=== PATIENT | female | born 1940 | race Caucasian/White ===

== ENCOUNTER → 2023-09-17 12:53 | Outpatient (REF) | payer MEDICARE, OTHER, SELFPAY | LOC: RAD 12:53 | PROVIDERS: ATTENDING PHYSICIAN Nurse Practitioner | DX: J06.9 Acute upper respiratory infection, unspecified (principal); R05.9 Cough, unspecified | CPT/HCPCS: 71046 ==

== ENCOUNTER → 2024-03-19 13:46 | Outpatient (REF) | payer MEDICARE, OTHER, SELFPAY | LOC: RAD 13:46 | PROVIDERS: ATTENDING PHYSICIAN Physician Assistant | DX: J40 Bronchitis, not specified as acute or chronic (principal) | CPT/HCPCS: 71046 ==

== ENCOUNTER 2024-03-20 23:29 | Inpatient (IN) | payer MEDICARE, OTHER, SELFPAY ==
[2024-03-20 21:55] VITALS: BP 212/82
[2024-03-20 22:00] VITALS: BMI 26.1
[2024-03-20 22:02] VITALS: BP 115/94
--- NOTE | 2024-03-20 22:19 | ED.GENMED ---
History of Present Illness
<GREGG Flores - Last Filed: 03/21/24 00:10>
General
Chief Complaint: Heart Rate Problem
Source: patient and family
Exam Limitations: none
Time Seen by Provider: 03/20/24 22:00
Nursing documentation reviewed up to this point in time: agreed with
History of Present Illness
History of Present Illness:
Patient is an 83yo F w/ no significant PMH who presents to the ED for a complaint of low HR. Her daughter checked her pulse which was between 40-43 bpm and consulted PCP who instructed to come to ER. She reports low energy, palpitations, and leg
weakness x3wks. These sxs have been progressively worsening. She admits to SOB but denies chest pain. Reports cough developed last weekend and she saw PCP Sunday. PCP did CXR which showed bronchitis & small pleural effusion. Was given Medrol dose
pack Tessalon pearls. She denies any hx of cardio or pulm problems. 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
Review of Systems
<GREGG Flores - Last Filed: 03/21/24 00:10>
Review of Systems
Constitutional: Reports fatigue; Denies fever or chills
Respiratory: Reports cough and trouble breathing
Cardiac: Reports palpitations; Denies chest pain
ABD/GI: Denies abdominal pain, nausea, vomiting, diarrhea or constipated
: Denies dysuria
Musculoskeletal: Denies joint pain or muscle pain
Neurological: Reports weakness
Phy Exam
<GREGG Flores - Last Filed: 03/21/24 00:10>
General Physical Exam
General Presentation: no apparent distress
General age: appears stated age
General Skin: warm and dry
General Habitus: elderly
General Mental: alert
Cardiovascular Exam
Cardiovascular Exam: no gallop, no murmur and bradycardia
Pulmonary Exam
Pulmonary Exam: lungs clear, no respiratory distress, no rales, no crackles, no rhonchi and no wheezing
Neurological Exam
Neurological Exam: alert, oriented x3, no motor deficits, no sensory deficits and speech normal
Musculoskeletal Exam
Musculoskeletal Exam: edema
Course
<Dea Wong, STPA - Last Filed: 03/21/24 00:10>
Orders/Labs/Results
Orders:
Orders
03/20/24 21:49
EKG [Electrocardiogram (*1)] Urgent
Reason for Study: Bradycardia / Tachycardia
EKG- Treatment ONCE
03/20/24 22:02
Complete Blood Count/With Diff Urgent
Comprehensive Metabolic Panel Urgent
Troponin I Urgent
03/20/24 23:09
CR Chest Portable - 1 View Urgent
Comment:
Reason For Exam: bradycardia
Reason Study Needs to be Portable: Unable to Transport
03/20/24 23:13
Admit/Transfer Patient As Directed
Co-Sign Provider:
Level of Care: Inpatient admission
Assign to:: IVU
Physician / Group: hospitalist
Diagnosis: third deg heartblock
Reason for Hospitalization: symptomatic bradycardia
Expected length of stay greater than two midnights?: Yes
ELOS- Estimated Length of Stay in days: 2
I certify the patient meets the requirements for IP care: Yes
Albuterol [ProAIR HFA INHALER] 1 puff INH R Q4HPRN PRN
Benzonatate [Tessalon Perles] 100 mg PO TIDPRN PRN
PRN Pain Medication Management As Directed
May give lesser potent ordered pain med per pt: Yes
preference::
Protocol:: Medication orders for pain may be administered in a
manner that supports deferring to patient preference
when the pt is:
- Requesting an ordered lesser potent pain medication.
Least to most potent pain medications are defined
as: acetaminophen < NSAID < tramadol < opioids
(morphine, oxycodone, hydromorphone).
- Requesting a lesser dose of the same medication IF
ORDERED.
- Requesting a less intrusive route of administration
if both routes are prescribed by the provider (PO <
IV).
03/20/24 23:14
Code Status As Directed
Resuscitation Status: Full Code
03/20/24 23:45
Guaifenesin [Mucinex] 600 mg PO Q12H
03/21/24 08:00
Bupropion(12Hr)Sustain Release [WELLBUTRIN SR (12 hour sustained release)] 100 mg PO DAILY
Pantoprazole [Protonix] 40 mg PO DAILY
03/21/24 22:00
Famotidine [Pepcid] 20 mg PO HS
Abnormal Lab Results
03/20/24
22:02
WBC 11.6 H 10^3/uL
(4.8-10.8)
RBC 3.76 L 10^6/uL
(4.20-5.40)
Hgb 10.6 L g/dL
(12.0-16.0)
Hct 32.0 L %
(37.0-47.0)
RDW 14.7 H %
(11.5-14.5)
MPV 12.5 H fL
(7.4-10.4)
Absolute Neuts (auto) 9.1 H 10^3/uL
(1.4-6.5)
Absolute Monos (auto) 0.9 H 10^3/uL
(0.1-0.6)
Neutrophils % 78.2 H %
(42.2-75.2)
Lymphocytes % 13.8 L %
(20.5-51.1)
BUN 30 H mg/dl
(7-17)
Creatinine 1.1 H mg/dL
(0.6-1.0)
Glucose 123 H mg/dl
(70-99)
AST 51 H U/L
(14-36)
ALT 63 H U/L
(0-35)
Troponin I 0.040 H* ng/ml
03/20/24 22:02
03/20/24 22:02
Vital Signs
Initial and Last Documented VS:
Initial Vital Signs
Temp Pulse Resp BP Pulse Ox
98.7 F 41 12 212/82 97
03/20/24 21:55 03/20/24 21:55 03/20/24 21:55 03/20/24 21:55 03/20/24 21:55
Last Documented Vital Signs
Temp Pulse Resp BP Pulse Ox
98.7 F 38 13 224/70 93
03/20/24 21:55 03/20/24 23:45 03/20/24 23:45 03/20/24 23:00 03/20/24 23:45
<Tone Dyer, DO - Last Filed: 03/20/24 22:39>
Orders/Labs/Results
Orders:
Orders
03/20/24 21:49
EKG [Electrocardiogram (*1)] Urgent
Reason for Study: Bradycardia / Tachycardia
EKG- Treatment ONCE
03/20/24 22:02
Complete Blood Count/With Diff Urgent
Comprehensive Metabolic Panel Urgent
Troponin I Urgent
03/20/24 23:09
CR Chest Portable - 1 View Urgent
Comment:
Reason For Exam: bradycardia
Reason Study Needs to be Portable: Unable to Transport
03/20/24 23:13
Admit/Transfer Patient As Directed
Co-Sign Provider:
Level of Care: Inpatient admission
Assign to:: IVU
Physician / Group: hospitalist
Diagnosis: third deg heartblock
Reason for Hospitalization: symptomatic bradycardia
Expected length of stay greater than two midnights?: Yes
ELOS- Estimated Length of Stay in days: 2
I certify the patient meets the requirements for IP care: Yes
Albuterol [ProAIR HFA INHALER] 1 puff INH R Q4HPRN PRN
Benzonatate [Tessalon Perles] 100 mg PO TIDPRN PRN
PRN Pain Medication Management As Directed
May give lesser potent ordered pain med per pt: Yes
preference::
Protocol:: Medication orders for pain may be administered in a
manner that supports deferring to patient preference
when the pt is:
- Requesting an ordered lesser potent pain medication.
Least to most potent pain medications are defined
as: acetaminophen < NSAID < tramadol < opioids
(morphine, oxycodone, hydromorphone).
- Requesting a lesser dose of the same medication IF
ORDERED.
- Requesting a less intrusive route of administration
if both routes are prescribed by the provider (PO <
IV).
03/20/24 23:14
Code Status As Directed
Resuscitation Status: Full Code
03/20/24 23:45
Guaifenesin [Mucinex] 600 mg PO Q12H
03/21/24 08:00
Bupropion(12Hr)Sustain Release [WELLBUTRIN SR (12 hour sustained release)] 100 mg PO DAILY
Pantoprazole [Protonix] 40 mg PO DAILY
03/21/24 22:00
Famotidine [Pepcid] 20 mg PO HS
Abnormal Lab Results
03/20/24
22:02
WBC 11.6 H 10^3/uL
(4.8-10.8)
RBC 3.76 L 10^6/uL
(4.20-5.40)
Hgb 10.6 L g/dL
(12.0-16.0)
Hct 32.0 L %
(37.0-47.0)
RDW 14.7 H %
(11.5-14.5)
MPV 12.5 H fL
(7.4-10.4)
Absolute Neuts (auto) 9.1 H 10^3/uL
(1.4-6.5)
Absolute Monos (auto) 0.9 H 10^3/uL
(0.1-0.6)
Neutrophils % 78.2 H %
(42.2-75.2)
Lymphocytes % 13.8 L %
(20.5-51.1)
BUN 30 H mg/dl
(7-17)
Creatinine 1.1 H mg/dL
(0.6-1.0)
Glucose 123 H mg/dl
(70-99)
AST 51 H U/L
(14-36)
ALT 63 H U/L
(0-35)
Troponin I 0.040 H* ng/ml
03/20/24 22:02
03/20/24 22:02
Vital Signs
Initial and Last Documented VS:
Initial Vital Signs
Temp Pulse Resp BP Pulse Ox
98.7 F 41 12 212/82 97
03/20/24 21:55 03/20/24 21:55 03/20/24 21:55 03/20/24 21:55 03/20/24 21:55
Last Documented Vital Signs
Temp Pulse Resp BP Pulse Ox
98.7 F 38 13 224/70 93
03/20/24 21:55 03/20/24 23:45 03/20/24 23:45 03/20/24 23:00 03/20/24 23:45
<GREGG Flores - Last Filed: 03/21/24 00:10>
MDM/Problems Addressed
MDM/Problems Addressed:
heart block, heart failure,
<Tone Dyer DO - Last Filed: 03/20/24 22:39>
MDM/Problems Addressed
Differential Diagnosis Includes:
Complete heart block, sick sinus syndrome, hypertension, CHF
Chronic conditions affecting care:
Anxiety
<Tone Dyer DO - Last Filed: 03/20/24 22:39>
*Pulse Oximetry
Patient hypoxic: no
*Environmental Compliance Technician Interpretation
Rate: bradycardiac
Interpretation: abnormal
Heart Rate: 40
Rhythm: sinus
*Critical Care Note
Total Time (30-74mins, 75-104mins- exclusive of procedures): 30 (Critical care statement: A total of 30 minutes of critical care time was provided for this patient. This time is separate from time utilized to perform the aforementioned documented
procedures. Aggregate critical care time includes only time during which I was engaged in work directl)
ED Attending Note
<GREGG Flores - Last Filed: 03/21/24 00:10>
-
Portions of this chart may have been created with voice recognition software.� Occasional wrong word or��sound alike� substitutions may have occurred due to the inherent limitations of voice recognition software.
<Tone Dyer DO - Last Filed: 03/20/24 22:39>
ED Attending Note
Patient seen and examined by attending physician: Yes
I performed the substantive portion of visit, reviewed & personally made and approve the management plan that is documented in note by myself or SANTOS.: Yes
ED Attending Note:
This a pleasant 83-year-old female presents to the emergency department with with a complaint of low heart rate that has been present for the last few weeks. Tonight her daughter auscultated her heart and found to to be low so she contacted her
family doctor who instructed her to go to the hospital. Patient denies chest pain. She states that she has had low energy and 'heavy legs' for the last few weeks. She states that the symptoms have worsening. She does have some shortness of
breath. Patient was seen in conjunction with the PA student. I have reviewed and agree with the history and treatment plan presented. On my independent physical exam, patient is awake, alert, and oriented x3, hard of hearing, heart is bradycardic.
Lungs are clear to auscultation bilaterally without respiratory distress. Abdomen soft and nontender. Skin is warm and dry. Moves all 4 extremities. 1+ edema bilateral lower extremities.
EKG shows complete heart block. Rate of 41. QRS is widened at 122 ms. Corrected QT is 361.
Spoke with Dr. Reyes, cardiology who saw the EKG and agreed. Recommends IVU admission to the hospitalist service. N.p.o. after midnight.
Discharge Plan
Departure
Patient Disposition: Admit
Date of Disposition: 03/20/24
Time of Disposition: 22:37
Admit to: IVU
Presentation/result/management discussed w/ accepting MD/DO: Hospitalist
Condition: Serious
Discharge Problem:
CHB (complete heart block)
Interventions
Interventions:
*Risk Screen - Suicide Last Done: 03/20/24 21:50
*General Assessment Last Done: 03/20/24 21:50
*Neglect/Abuse Screening Last Done: 03/20/24 21:50
ED- Fall Risk Assessment Last Done: 03/20/24 22:18
*ED COVID-19 Vaccine History Last Done: 03/20/24 22:03
ED- Cardiac Assessment Last Done: 03/20/24 22:03
ED- Pulmonary Assessment Last Done: 03/20/24 22:03
[2024-03-20 22:22] LABS: ALT (SGPT) 63 U/L (0-35); AST (SGOT) 51 U/L (14-36); Albumin 4.4 g/dl (3.5-5.0); Alkaline Phosphatase 66 U/L (38-126); Blood Urea Nitrogen 30 mg/dl (7-17); Calcium 9.8 mg/dl (8.4-10.2); Carbon Dioxide 22 mmol/L (22-30); Chloride 104 mmol/L (98-107); Estimated Creatinine Clearance 30 ml/min; Glucose 123 mg/dl (70-99); Potassium 4.4 mmol/L (3.5-5.1); Sodium 139 mmol/L (135-145); Total Bilirubin 0.4 mg/dl (0.2-1.3); Total Protein 6.5 g/dl (6.3-8.2); eGFR 49.55
[2024-03-20 22:24] LABS: Hemoglobin 10.6 g/dL (12.0-16.0); Mean Corp Hgb Conc. 33.1 g/dL (33.0-37.0); Mean Corpuscular Hgb 28.2 pg (27.0-31.0); Mean Corpuscular Volume 85.1 fL (81.0-99.0); Mean Platelet Volume 12.5 fL (7.4-10.4); Platelet Count 292 10^3/uL (130-400); Red Blood Cell Count 3.76 10^6/uL (4.20-5.40); Red Cell Dist. Width 14.7 % (11.5-14.5); White Blood Cell Count 11.6 10^3/uL (4.8-10.8)
[2024-03-20 22:25] VITALS: BP 197/81
[2024-03-20 22:28] VITALS: BP 216/75
[2024-03-20 22:44] VITALS: BP 206/67
[2024-03-20 22:47] LABS: % Basophils 0.3 % (0-2); % Immature Granulocytes 0.3 % (0-0.5); % Lymphocytes 13.8 % (20.5-51.1); % Monocytes 7.4 % (1.7-9.3); % Neutrophils 78.2 % (42.2-75.2); Absolute Lymphocytes 1.6 10^3/uL (1.2-3.4); Absolute Monocytes 0.9 10^3/uL (0.1-0.6); Absolute Neutrophils 9.1 10^3/uL (1.4-6.5); Nucleated Red Blood Cells % 0 %
[2024-03-20 23:00] VITALS: BP 224/70
--- NOTE | 2024-03-20 23:05 | HPS.HSE ---
Family Physician
-
Family Physician: Stephen Goode PA-C
Chief Complaint
-
3rd deg Heart block
History of Present Illness
This is a 83-year-old female with no known significant past medical history who presents to the emergency department with symptomatic bradycardia.
Patient reported that she had flu vaccination about 3 weeks ago. Since then she has been having dyspnea on exertion and shortness of breath. She notes she initially thought that this was all respiratory and has been getting treatments with cough
medications and respiratory treatments. She is continue to have no significant improvement. Patient reported that she has weakness with any degree of ambulation. She has denied lightheadedness, dizziness or syncope. She does report trace
bilateral ankle edema. She denies having any chest pain. She denies fevers or chills. She denies any rash. She denies any recent changes in her medications.
Patient was being evaluated today by daughter who is a nurse and she complained that she just was not feeling well enough to travel. She checked heart rate and found that she was bradycardic to the 40s on multiple checks. Oxygen saturation was
normal.
Patient brought to the emergency department. She had a EKG showing third-degree AV block with a rate of 40. Troponin was 104. Rest of her vitals are notable for blood pressure of 200 systolic, temperature of 90.7 and oxygen saturation of 98% on
room air. CBC notable for hemoglobin of 10.6 which is slightly declined from prior. Chemistries notable for slight elevation in BUN and creatinine.
Medical History
Past Medical History
Past Medical History: Reports GERD
Past Surgical History: Reports Gynocological (No remote utilization)
Social History
Tobacco: Non-smoker
Alcohol: None
Drug: None
Personal:
Living: Alone
Employment: Retired
Family History
Family History: Not pertinent
Allergies / Home Medications
Allergies reflects when Allergies were last updated in [employer].
Home Medications with original date entered in [employer]
Allergy/Medication List:
Allergies
Allergy/AdvReac Type Severity Reaction Status Date / Time
prednisone Allergy SKIN Verified 03/20/24 22:01
BURNING
shellfish derived Allergy Hives Verified 03/20/24 22:01
Home Medications
albuterol sulfate 90 mcg/actuation aerosol inhaler 1 puff inhalation R Q4HPRN PRN sob/wheezing 03/20/24
benzonatate 100 mg capsule 100 mg PO TIDPRN PRN cough 03/20/24
bupropion HCl 100 mg tablet,12 hr sustained-release 100 mg PO DAILY 03/20/24
famotidine 40 mg tablet 40 mg PO HS 03/20/24
guaifenesin 600 mg tablet, extended release 12 hr (Mucinex) 600 mg PO Q12H 03/20/24
methylprednisolone 4 mg tablets in a dose pack 4 mg PO PER PKG DIR 03/20/24
omeprazole 20 mg capsule,delayed release 20 mg PO DAILY 03/20/24
vit C 250 mg-vit E 90 mg-zinc 40 mg-copper 1 [id number]-[id number] capsule (PreserVision AREDS-2) 1 tab PO BID 03/20/24
Review of Systems
-
Constitutional: Reports Fatigue
EENT: Reports No Symptoms
Respiratory: Reports Trouble Breathing
Cardiac: Reports No Symptoms
Abdomen/GI: Reports No Symptoms
: Reports No Symptoms
Musculoskeletal: Reports No Symptoms
Skin: Reports No Symptoms
Neurological: Reports Weakness
Endocrine: Reports No Symptoms
Hematologic/Lymphatic: Reports No Symptoms
Psych: Reports No Symptoms
Physical Exam
Vital Signs
Vital Signs
Temp Pulse Resp BP Pulse Ox
98.7 F 39 17 206/67 97
03/20/24 21:55 03/20/24 22:45 03/20/24 22:45 03/20/24 22:44 03/20/24 22:45
Physical Exam
General: Well Developed, Well Nourished, No Apparent Distress and Comfortable
HEENT: NormoCephalic, Anicteric, Moist mucous membranes and Atraumatic
Respiratory: Clear
Cardiac: S1/S2, Regular Rhythm and Bradycardia
Breast: Deferred by me
GI: Soft, Non Tender, Non Distended and Normal Bowel Sounds
Rectal: Deferred by Provider
Musculoskeletal: No Clubbing, No Cyanosis, Edema, Left Lower Extremity (trace) and Edema, Right Lower Extremity (trace)
Skin: Warm
Neuro: AO x 3
Hematologic/Lymphatic: No Lymphadenopathy
Psych: Calm
Laboratory Results
-
03/20/24 22:02
03/20/24 22:02
Laboratory Results
Total Bilirubin 0.4 mg/dl (0.2-1.3) 03/20/24 22:02
AST 51 U/L (14-36) H 03/20/24 22:02
ALT 63 U/L (0-35) H 03/20/24 22:02
Alkaline Phosphatase 66 U/L (38-126) 03/20/24 22:02
Troponin I 0.040 ng/ml H* 03/20/24 22:02
Data Reviewed
-
Medical Tests (Nuc Med, Echo, EKG etc): Image Personally Visualized and interpreted
Lab Data: Labs Reviewed by me
Old Records: Reviewed
Impression/Plan
-
IMPRESSION:
83-year-old with history of GERD who presented with symptomatic bradycardia and found to be in third-degree AV block. She is hemodynamically stable. At rest she is asymptomatic. Troponin 0.04 without any other complaints.
PLAN:
3rd Deg AVB - Asymptomatic at rest but has symptoms with any exertion. Ventricular rate of 40.
- admit to ivu
- external pacemaker reserved
- will start dopamine IV if symptomatically bradycardic or hypotensive and consult ir for temporary ppm
- permissive systolic hypertension for now
- no h/o lyme, check tsh
- case discussed with cardiology, npo for now
- mild worsening of renal function likely rate related.
Anemia - GERD, no h/o gi bleed
- check iron indices, retic and b12 level
- continue ppi and h2 blockade for GERD
DVT PPX - lovenox sq
code status - full code
[2024-03-20] MEDS: MUCINEX 600 MG PO (23:58)
[2024-03-21] VITALS (13 sets, daily range): BP systolic 132–193; BP diastolic 53–124; BMI 25.0
[2024-03-21 01:23] LABS: Troponin I 0.045 ng/ml
[2024-03-21] MEDS: TESSALON PERLES 100 MG PO (02:15)
--- NOTE | 2024-03-21 03:29 | PTCARENOTE ---
Pt admitted to IVU ~0020. HR 3rd degree heart block, 30s-40s. Pt belongings w/ pt. Meds sent home w/ daughter Lucille. Oriented pt to unit and plan of care. Pt states understanding. Pt denies any SOB, CP or lightheadedness/dizziness. Call [facility] within
reach.
[2024-03-21 04:20] LABS: INR 1.06; PT 14.3 Sec (11.4-14.6)
[2024-03-21 04:27] LABS: Blood Urea Nitrogen 24 mg/dl (7-17); Calcium 9.2 mg/dl (8.4-10.2); Carbon Dioxide 25 mmol/L (22-30); Chloride 106 mmol/L (98-107); Estimated Creatinine Clearance 36 ml/min; Glucose 91 mg/dl (70-99); HDL Cholesterol 44 mg/dl; Iron 27 ug/dl (37-170); LDL Cholesterol, Calculated 72 mg/dl; Potassium 4.1 mmol/L (3.5-5.1); Sodium 140 mmol/L (135-145); Total Cholesterol 138 mg/dl (50-199); Triglyceride 113 mg/dl (10-149); Very Low Density Lipoprotein 22 mg/dl (0-30); eGFR > 60.00
[2024-03-21 04:56] LABS: Troponin I 0.334 ng/ml
[2024-03-21 05:15] LABS: Hematocrit 29.2 % (37.0-47.0); Hemoglobin 9.7 g/dL (12.0-16.0); Mean Corp Hgb Conc. 33.2 g/dL (33.0-37.0); Mean Corpuscular Hgb 28.3 pg (27.0-31.0); Mean Corpuscular Volume 85.1 fL (81.0-99.0); Mean Platelet Volume 12.5 fL (7.4-10.4); Platelet Count 230 10^3/uL (130-400); Red Blood Cell Count 3.43 10^6/uL (4.20-5.40); Red Cell Dist. Width 14.6 % (11.5-14.5); Reticulocyte Count 2.3 % (0.4-2.8); White Blood Cell Count 10.2 10^3/uL (4.8-10.8)
[2024-03-21 05:17] LABS: Vitamin B12 535 pg/ml (239-931)
--- NOTE | 2024-03-21 07:44 | CON.CAR ---
Addendum entered and electronically signed by Tuan Hairston MD 03/21/24 11:02:
I saw and examined the patient.
The EVENT SPECIALIST's note was reviewed and I agree with the note.
Comment: Several weeks of fatigue. Anginal chest pain just started yesterday evening.
NSTEMI: CP, + troponin, and wall motion changes on echo
- Likely LAD event
- Not typical Takotsubo but let's see what angio shows
Complete heart block
- Typical anterior ID with heart block would include a RBBB
- IMI heart block typically resolves. Anterior ID heart block will not likely be reversible
- Anticipate will need pacemaker prior to discharge
GERD
Anemia
- With normal TIBC and normal MCV this is not clearly chronic iron deficient
- Will need a workup after cardiac status stabilized
Plan:
- Echo (prelim: ant/apical/septal walll motion but not quite ballooning, EF 40 or so, MR is mild-moderate, PASP 45 mmHg)
- Cath/revascularization if indicated based on anatomy
- Likely condcution system pacemaker prior to discharge, timing depends on clinical courese
- Add meds for LVEF/and likely for CAD
- Will need eventual workup of anemia
- Will see cath data (LVEDP) to see if diuresis needed, CXR w/o obvious heart failure but some cough and elevated PASP
Original Note:
Consultation
Consultation Request
Date/Time Consultation Requested: 03/21/2024 00:15
Date/Time Consultation Performed: 03/21/2024 07:45
Requesting Provider: Dr. Oliva
Performing Provider: OREN Escobar for Dr. Hairston
Reason for Consultation: Heart block
Medical History
-
Chief Complaint: Low heart rate
History of Present Illness:
Lyn Toussaint is an 83 year old female with GERD who presented to the ER with complaints of low heart rate. Three weeks ago she had her influenza vaccination. She has been experiencing fatigue and HUSAIN. She thought this was all respiratory in nature.
She saw her PCP. She was started on Mucinex and then steroids. She has not felt any improvement. EKG in the ER showed complete heart block with junctional escape. Last night she complained of chest tightness that felt tight and 'pressure'. She has
her shortness of breath which is unchanged. Her troponin is trending up. She is currently chest pain free.
Past Medical History
Past Medical History: GERD
Social History
Tobacco: Former Smoker
Alcohol: None
Drug: None
Personal: (08/2023)
Living: Alone
Employment: Retired
Family History
Family History: Reviewed & Not Pertinent
Allergies / Home Medications
Allergy/AdvReac Type Severity Reaction Status Date / Time
prednisone Allergy SKIN Verified 03/20/24 22:01
BURNING
shellfish derived Allergy Hives Verified 03/20/24 22:01
�Medication �Instructions �Recorded �Confirmed �Type
albuterol sulfate 90 mcg/actuation 1 puff inhalation R Q4HPRN PRN 03/20/24 03/20/24 History
aerosol inhaler sob/wheezing
benzonatate 100 mg capsule 100 mg PO TIDPRN PRN cough 03/20/24 03/20/24 History
bupropion HCl 100 mg tablet,12 hr 100 mg PO DAILY 03/20/24 03/20/24 History
sustained-release
famotidine 40 mg tablet 40 mg PO HS 03/20/24 03/20/24 History
guaifenesin 600 mg tablet, 600 mg PO Q12H 03/20/24 03/20/24 History
extended release 12 hr (Mucinex)
methylprednisolone 4 mg tablets in 4 mg PO PER PKG DIR 03/20/24 03/20/24 History
a dose pack
omeprazole 20 mg capsule,delayed 20 mg PO DAILY 03/20/24 03/20/24 History
release
vit C 250 mg-vit E 90 mg-zinc 40 1 tab PO BID 03/20/24 03/20/24 History
mg-copper 1 gc-[id number]-sfnfrk
capsule (PreserVision AREDS-2)
Review of Systems
-
History Source: Patient
All other systems: Negative unless noted
Constitutional: Fatigue
EENT: No Symptoms
Respiratory: Cough
Cardiac: Chest Pain
Abdomen/GI: No Symptoms
: No Symptoms
Musculoskeletal: No Symptoms
Skin: No Symptoms
Neurological: No Symptoms
Endocrine: No Symptoms
Hematologic/Lymphatic: No Symptoms
Physical Exam
Vital Signs
Temp Pulse Resp BP Pulse Ox
98.1 F 39 18 170/65 96
03/21/24 03:37 03/21/24 03:45 03/21/24 03:37 03/21/24 03:37 03/21/24 03:37
Lab Results
03/21/24 03:53
03/21/24 03:53
Troponin I 0.334 ng/ml H* D 03/21/24 03:53
Physical Exam
General: Well Developed, Well Nourished and No Apparent Distress
HEENT: Normocephalic and Anicteric
Respiratory: Clear and Non Labored Respirations
Cardiac: S1/S2 and Regular Rhythm (Bradycardia)
Breast: Deferred by me
GI: Soft, Non Tender, Non Distended and Normal Bowel Sounds
Rectal: Deferred by Provider
Genito-urinary: No Costovertebral Tender
Musculoskeletal: No Clubbing, No Cyanosis and No Edema
Skin: Warm and Dry
Neuro: AO x 3
Hematologic/Lymphatic: No Lymphadenopathy
Psych: Calm
Impression / Plan
-
BACKGROUND: 83F with GERD C/O low heart rate found to be in complete heart block with junctional escape
IMPRESSION/PLAN:
Complete heart block with junctional escape
-Denies syncope
-TTE
-She is agreeable to PPM
Abnormal troponin, type unknown
-She did have chest tightness/pressure early this morning with TWI on EKG
-An abnormal troponin in the setting of heart block is not abnormal however it is trending up
-TTE to evaluate WMA
Cough, per primary
GERD
Data Reviewed
-
EKG: Report Reviewed by me (Complete heart block with junctional bradycardia, rate 39)
Labs: Labs Reviewed by me
[2024-03-21 08:26] LABS: Percent Saturation 7 % (20-50); Total Iron Binding Capacity 350 ug/dl (265-497)
--- NOTE | 2024-03-21 08:45 | CARDSERVLU ---
Echocardiogram with Lumason completed after protocol screening completed. Allergies verified.
Patent IV site: __left FA___
IV site flushed with 0.9% NaCl pre and post administration.
Diluted bolus method utilized to enhance visualization of ventricular hughes.
Total volume given: _6.0__ mL
Patient tolerated all procedures well without complications.
--- NOTE | 2024-03-21 08:55 | W.PN.HOSP.TC ---
Today's Communication/Plan
-
Cardiac catheterization
Assessment / Plan
Assessment / Plan
83-year-old presented with low heart rate. She had flu vaccine 3 weeks ago and has been really fatigued. Saw PCP was treated with a course of steroids. Yesterday daughter listened to her heart rate and it was really low she contacted PCP and
patient was advised to go to ER.. Patient also had some chest tightness overnight
CVS: S1-S2 bradycardia
Chest: CTA B/L
Abdomen: Soft, NT / Bowel sounds present
Extremities: No edema, normal pulses
PROBATE CLERK: Non focal exam
EKG reviewed by me- Complete heart block
# Complete heart block with idioventricular Rhythm
Check echo
If Still has a heart block despite cardiac cath revascularization then patient may need pacemaker
# Abnormal troponin trend
Patient has angina
Ischemia workup-scheduled for cardiac catheter today
Started on aspirin
# Anemia- LALY- Replace iron
# Depression-continue Wellbutrin
# GERD-continue PPI
# Ex-smoker
# DVT Prophylaxis-Lovenox
# Full CODE
D/W Cards
Discussed with nursing
Anticipated Discharge: 24 - 48 hours
Subjective/Interval History
-
Date of Service: March 21, 2024
Objective Data
-
Labs:
Laboratory Results
03/20/24 03/21/24
22:02 03:53
WBC 11.6 H 10.2
Hgb 10.6 L 9.7 L
Hct 32.0 L 29.2 L
Plt Count 292 230 D
PT 14.3
INR 1.06
Sodium 139 140
Potassium 4.4 4.1
Chloride 104 106
Carbon Dioxide 22 25
BUN 30 H 24 H
Creatinine 1.1 H 0.8
Glucose 123 H 91
Calcium 9.8 9.2
Total Bilirubin 0.4
AST 51 H
ALT 63 H
Alkaline Phosphatase 66
Vital Signs:
Vital Signs
Temp Pulse Resp BP Pulse Ox
98.3 F 39 22 170/65 96
03/21/24 08:00 03/21/24 03:45 03/21/24 08:00 03/21/24 03:37 03/21/24 08:00
I&O
03/20/24 03/21/24 03/22/24
06:59 06:59 06:59
Output Total 200 / 200
Balance -200 / -200
[2024-03-21] MEDS: LOW STRENGTH ASPIRIN 324 MG PO (08:57)
[2024-03-21] MEDS: PROTONIX 40 MG PO (08:57)
--- NOTE | 2024-03-21 09:35 | PTCARENOTE ---
Upon assessment @736 Pt c/o intermittent chest pressure 7/10 HR 44 BP 182/71 . EKG and Troponin done. Placed on 2L NC. Dr Reyes notified ordered Echo.
--- NOTE | 2024-03-21 11:49 | ITS.CL.CATH ---
Whis[employer] - Catheterization
Cardiac Catheterization
Procedure Report:
CARDIAC CATHETERIZATION REPORT
Date of Procedure: 03/21/2024
Referring: Tuan Hairston MD
Indication: Non-STEMI with left ventricular dysfunction
�
HEMODYNAMIC DATA
AO: 142/76
LV: 142/20
�
LEFT VENTRICULOGRAPHY: Severe anterolateral, apical, and inferoapical hypokinesis with EF visually estimated at 25-30%
�
CORONARY ANGIOGRAPHY
Dominance: Right
Left Main: Normal
LAD: Focal 30% ostial LAD stenosis with otherwise mild luminal irregularities in the LAD system
Circumflex: Normal
RCA: Dominant vessel with very mild luminal irregularities
�
Closure Device: 6 Sinhala Angio-Seal RFA. Of note, we were able to get brisk pulsatile arterial flow following micropuncture of the right radial artery on two occasions but could not advance a soft wire more than several centimeters and abandon the
radial approach.
�
Radiation (mGy): 111.98
DAP (cm2.Gy): 8.6
Fluoroscopy time: 1.4 minutes
�
CONCLUSIONS
1:�Elevated LVEDP
2:�Severe anterolateral, apical, and inferoapical hypokinesis with EF 25-30%
3. Mild noncritical CAD as described
4. Clinical, echocardiographic, and angiographic findings are consistent with diagnosis of Takotsubo cardiomyopathy
5. The patient remained in complete heart block with junctional escape at 41 per minute for the duration of the procedure. Following discussion with EPS, she will be monitored for the next 48-72 hours to see if sinus rhythm returns and if not
whether LVEF improves in order to decide whether she should have a PPM or ICD placed
�
�
Copy to: Tuan Hairston MD, Stephen Goode PA-C
�
Hernandez Harman MD, [facility], [facility]
--- NOTE | 2024-03-21 12:10 | PTCARENOTE ---
Received pt from pharmaceutical laboratory technician @ 1852 Rt groin site c/d/i no hematoma. VSS Family at bedside reviewed plan of care
[2024-03-21] MEDS: NSS 1000 IV (12:29)
[2024-03-21] MEDS: WELLBUTRIN SR (12 hour sustained release) 100 MG PO (12:30)
[2024-03-21] MEDS: LASIX 20 MG PO (12:31)
[2024-03-21] MEDS: MUCINEX 600 MG PO ×2 (12:32→23:33)
[2024-03-21] MEDS: FERRLECIT 110 MG IV (13:47)
[2024-03-21] MEDS: COZAAR 25 MG PO (15:29)
--- NOTE | 2024-03-21 16:34 | CM ---
CM following for DC planning needs.
Attempted to meet with patient nickt. times to complete initial assessment but patient was sleeping soundly.
Call to dtr., Lucille via telephone. Lucille reports that patient resides alone since July 2023 when her spouse . She has been fairly depressed since then with recent increased level of anxiety. She is reportedly seeking help for this.
Pt. resides in a 2 story home. She is indep. w/ ADLs, mobility without the use of any assisted device.
Pt. has stair glide in the home.
Dtr. thinks that VN will be of assistance for pt. at DC. (RN, DISTANCE LEARNING COORDINATOR); [facility] preferred.
Referral sent to [facility].
Anticipate DC to home once stable w/ [facility], if accepted.
Will cont. to follow.
[2024-03-21] MEDS: LOVENOX 40 MG SC (18:35)
[2024-03-21] MEDS: PEPCID 20 MG PO (22:26)
--- NOTE | 2024-03-21 23:00 | PTCARENOTE ---
Pt received at change of shift. Third degree heart block on tele with HR 38-43. POX 98% on 2L NC. No complaints of CP at this time. R radial and R femoral cath sites c/d/i with no complications noted. Pt ambulating with standby assist in room
without difficulty. Plan of care discussed. Can make needs known. Call casas within reach.
[2024-03-22] VITALS (9 sets, daily range): BP systolic 107–155; BP diastolic 49–125; BMI 24.3
[2024-03-22 05:20] LABS: Hematocrit 29.9 % (37.0-47.0); Hemoglobin 9.8 g/dL (12.0-16.0); Mean Corp Hgb Conc. 32.8 g/dL (33.0-37.0); Mean Corpuscular Hgb 27.7 pg (27.0-31.0); Mean Corpuscular Volume 84.5 fL (81.0-99.0); Mean Platelet Volume 12.4 fL (7.4-10.4); Platelet Count 225 10^3/uL (130-400); Red Blood Cell Count 3.54 10^6/uL (4.20-5.40); Red Cell Dist. Width 14.5 % (11.5-14.5)
[2024-03-22 05:40] LABS: Blood Urea Nitrogen 21 mg/dl (7-17); Calcium 9.1 mg/dl (8.4-10.2); Carbon Dioxide 26 mmol/L (22-30); Chloride 103 mmol/L (98-107); Estimated Creatinine Clearance 36 ml/min; Glucose 90 mg/dl (70-99); Potassium 3.8 mmol/L (3.5-5.1); Sodium 138 mmol/L (135-145); eGFR > 60.00
[2024-03-22] MEDS: LASIX 20 MG PO (08:59)
[2024-03-22] MEDS: WELLBUTRIN SR (12 hour sustained release) 100 MG PO (08:59)
[2024-03-22] MEDS: PROTONIX 40 MG PO (08:59)
[2024-03-22] MEDS: COZAAR 25 MG PO (08:59)
[2024-03-22] MEDS: LOW STRENGTH ASPIRIN 81 MG PO (08:59)
--- NOTE | 2024-03-22 09:38 | W.PN.CD ---
Today's Communication / Plan
-
Telemetry
ARB
Add MRA
Check cost of SGLT2-I
Loop diuretic
Echo Sunday
Review echo and tele Sunday to decide IF and WHAT TYPE of DEVICE will be implanted.
Impression / Plan
-
Background: 83F with GERD C/O low heart rate found to be in complete heart block with junctional escape
Complete heart block with junctional escape
Cardiomyopathy
- Suspected Takotsubo cardiomyopathy
- Cannot rule out preexisting cardiomyopathy but let's hope its Takotsubo
Abnormal troponin elevation in Takotsubo is considered NONISCHEMIC myocardial injury
Cough, LVEDP at cath 20, possible acute heart failure, systolic, treatment underway
GERD
Anemia, on IV iron and iron studies not classic for chronic iron deficiency, will need outpt GI and perhaps hematology evaluation
Subjective:
CP has resolved. Cough better. Heart block persists.
Physical Exam
Vital Signs/Labs
Vital Signs
Temp Pulse Resp BP Pulse Ox
98.3 F 40 16 133/51 99
03/22/24 07:39 03/22/24 05:00 03/22/24 07:39 03/22/24 04:57 03/22/24 07:39
03/21/24 03/22/24 03/23/24
06:59 06:59 06:59
Actual Weight 56 kg 54.6 kg
03/22/24 04:51
03/22/24 04:51
PT 14.3 Sec (11.4-14.6) 03/21/24 03:53
INR 1.06 03/21/24 03:53
Triglycerides 113 mg/dl (10-149) 03/21/24 03:53
LDL Cholesterol, Calc 72 mg/dl 03/21/24 03:53
VLDL Cholesterol, Calc 22 mg/dl (0-30) 03/21/24 03:53
HDL Cholesterol 44 mg/dl 03/21/24 03:53
LAB Results
03/20/24 03/21/24 03/21/24
22:02 00:35 03:53
Troponin I 0.040 H* 0.045 H* 0.334 H* D
03/21/24
07:54
Troponin I 0.660 H* D
Physical Exam
Constitutional: No acute distress
EENT: Anicteric
Cardiovascular: Rhythm & rate is regular and Pedal edema is absent
Respiratory: Respiratory effort normal and Lungs clear to auscul.
GI: Soft and Distention absent
Other: Cath Site (no bleed/hematoma)
Data Reviewed
-
Date of Service: March 22, 2024
--- NOTE | 2024-03-22 10:28 | W.PN.HOSP.TC ---
Today's Communication/Plan
-
ARb, MRA and Lasix started
Watch blood pressure
Watch heart rate on monitor
Repeat echo Sunday
Assessment / Plan
Assessment / Plan
83-year-old presented with low heart rate. She had flu vaccine 3 weeks ago and has been really fatigued. Saw PCP was treated with a course of steroids. Yesterday daughter listened to her heart rate and it was really low she contacted PCP and
patient was advised to go to ER.. Patient also had some chest tightness overnight 03/20/24
CVS: S1-S2 bradycardia, systolic murmur at apex
Chest: CTA B/L
Abdomen: Soft, NT / Bowel sounds present
Extremities: No edema
Echo 03/21/2024-moderately reduced LV systolic function. Hypokinesis of the mid to anterior apical, anteroseptal segments and apex. EF 40%. Mild to moderate MR. Mild AI. Mild TR. Elevated pulmonary artery systolic pressure 45 mmHg.
# Complete heart block with idioventricular Rhythm
Repeat echo Sunday to do side if patient needs pacemaker versus ICD
# Abnormal troponin trended down. Patient also had angina
Nonischemic myocardial injury
Cardiac catheterization 03/21/2024 without obstructive coronary disease
Elevated LVEDP 20
Continue aspirin
# Acute heart failure with reduced ejection fraction-Lasix 20 mg daily
Takotsubo cardiomyopathy suspected-patient started on ARB and MRA. No beta-blockers given heart block.
# Anemia- LALY- Replace iron. Outpatient GI evaluation
# Depression-continue Wellbutrin
# GERD-continue PPI
# Ex-smoker
# DVT Prophylaxis-Lovenox
# Full CODE
D/W Cards
I asked if patient's daughter has any questions patient stated that she is filled in. Patient has my information in case daughter has questions.
Anticipated Discharge: > 48 hours
Subjective/Interval History
-
Date of Service: March 22, 2024
Objective Data
-
Labs:
Laboratory Results
03/22/24
04:51
WBC 9.0
Hgb 9.8 L
Hct 29.9 L
Plt Count 225
Sodium 138
Potassium 3.8
Chloride 103
Carbon Dioxide 26
BUN 21 H
Creatinine 0.8
Glucose 90
Calcium 9.1
Vital Signs:
Vital Signs
Temp Pulse Resp BP Pulse Ox
98.3 F 40 16 133/51 99
03/22/24 07:39 03/22/24 05:00 03/22/24 07:39 03/22/24 04:57 03/22/24 07:39
I&O
03/21/24 03/22/24 03/23/24
06:59 06:59 06:59
Intake Total 612 / 612
Output Total 200 / 200 2450 / 2450
Balance -200 / -200 -1838 / -1838
[2024-03-22] MEDS: MUCINEX 600 MG PO ×2 (12:05→22:45)
--- NOTE | 2024-03-22 12:43 | PTCARENOTE ---
Assessment as documented, pt without complaints, family at bedside
[2024-03-22] MEDS: ALDACTONE 25 MG PO (12:50)
[2024-03-22] MEDS: FERRLECIT 110 MG IV (15:23)
[2024-03-22] MEDS: LOVENOX 40 MG SC (17:41)
--- NOTE | 2024-03-22 17:48 | PTCARENOTE ---
Assumed care. Patient comfortable in bed, CHB on telemetry HR 40's. New IV site placed. Call casas in reach
[2024-03-22] MEDS: PEPCID 20 MG PO (22:45)
--- NOTE | 2024-03-22 23:02 | PTCARENOTE ---
Pt received start of shift, HR 3rd degree heart block. R groin cath site dressing CDI, site soft - no hematoma. R radial site soft, no hematoma. Pt updated on plan of care, states understanding. Reinforced medication education with pt. Pt denies any
CP, SOB, or lightheadedness/dizziness.
[2024-03-23 03:20] VITALS: BP 147/59
[2024-03-23 03:29] VITALS: BMI 24.5
[2024-03-23 07:42] VITALS: BP 142/65
[2024-03-23] MEDS: PROTONIX 40 MG PO (07:43)
[2024-03-23] MEDS: LOW STRENGTH ASPIRIN 81 MG PO (07:43)
[2024-03-23] MEDS: ALDACTONE 25 MG PO (07:43)
[2024-03-23] MEDS: COZAAR 25 MG PO (07:43)
[2024-03-23] MEDS: WELLBUTRIN SR (12 hour sustained release) 100 MG PO (07:45)
[2024-03-23] MEDS: LASIX 20 MG PO (07:45)
--- NOTE | 2024-03-23 09:51 | W.PN.HOSP.TC ---
Today's Communication/Plan
-
check Lyme serology, TSH, Cortisol AM
Pending further cardio mgmt
Assessment / Plan
Assessment / Plan
83yo F with PMHx of LALY, anxiety, HFrEF, GERD came with worsening weakness, chest dyscomfort and low HR, found complete AVB, had cardiac cath on 03/21/24 with most likely Takotsubo, posible acute CHF, pending further decision by cardiology for the
type of device implantation needed (if any indicatied) based on tele and repeated Echo on 03/24/24
A/P:
#Takotsubo cardiomyopathy
#Acute HFrEF
#Complete AVB
#Non-ischemic myocardial injury
Echo on 03/21/24 - EF 40%, hypokinesis of the mid to anterior apical, anteroseptal segments and apex, mild-mod MR, elevated pulmonary pressure to 45mmHg
Telemetry
transcutaneous PPM as needed if symptomatic
Cardio follows
cont ASA, ARB, MRA, hold off BB in view of AVB
check Lyme serology, TSH, Cortisol AM
#LALY
#Anxiety d/o
#GERD
cont home meds
DVT ppx Lovenox
Full code
I have spent at least 38min reviewing chart, test results, communication with consultants and direct patient care
Anticipated Discharge: > 48 hours
Subjective/Interval History
-
Date of Service: March 23, 2024
Objective Data
-
Vital Signs:
Vital Signs
Temp Pulse Resp BP Pulse Ox
99.4 F 43 20 142/65 94
03/23/24 07:39 03/23/24 07:43 03/23/24 07:39 03/23/24 07:43 03/23/24 07:39
I&O
03/22/24 03/23/24 03/24/24
06:59 06:59 06:59
Intake Total 612 / 612 650 / 650
Output Total 2450 / 2450 400 / 400 350 / 350
Balance -1838 / -1838 250 / 250 -350 / -350
Review of Systems
-
History Source: Patient
All other systems: Reviewed and negative
Constitutional: Reports Fatigue
Physical Exam
-
General: No Apparent Distress
HEENT: Normocephalic
Respiratory: Clear to Auscultation
Cardiac: Regular Rhythm
GI: Soft, Nontender and Nondistended
Musculoskeletal: No Clubbing, No Cyanosis and No Edema
Neuro: Awake, Alert, Oriented and AO x 3
Psych: Calm
--- NOTE | 2024-03-23 10:01 | W.PN.CD ---
Today's Communication / Plan
-
Telemetry
ARB, MRA, loop diuretic at starting doses on board
Check cost of SGLT2-I
Echo Sunday
Review echo and tele Sunday to decide IF and WHAT TYPE of DEVICE will be implanted.
Impression / Plan
-
Background: 83F with GERD C/O low heart rate found to be in complete heart block with junctional escape
Complete heart block with junctional escape
Cardiomyopathy
- Suspected Takotsubo cardiomyopathy
- Cannot rule out preexisting cardiomyopathy but let's hope its Takotsubo
Abnormal troponin elevation in Takotsubo is considered NONISCHEMIC myocardial injury
Cough, LVEDP at cath 20, possible acute heart failure, systolic, treatment underway
GERD
Anemia, on IV iron and iron studies not classic for chronic iron deficiency, will need outpt GI and perhaps hematology evaluation
Subjective:
CP has resolved. Cough better. Heart block persists.
Physical Exam
Vital Signs/Labs
Vital Signs
Temp Pulse Resp BP Pulse Ox
99.4 F 43 20 142/65 94
03/23/24 07:39 03/23/24 07:43 03/23/24 07:39 03/23/24 07:43 03/23/24 07:39
03/22/24 03/23/24 03/24/24
06:59 06:59 06:59
Actual Weight 54.6 kg 55 kg
03/22/24 04:51
03/22/24 04:51
PT 14.3 Sec (11.4-14.6) 03/21/24 03:53
INR 1.06 03/21/24 03:53
Triglycerides 113 mg/dl (10-149) 03/21/24 03:53
LDL Cholesterol, Calc 72 mg/dl 03/21/24 03:53
VLDL Cholesterol, Calc 22 mg/dl (0-30) 03/21/24 03:53
HDL Cholesterol 44 mg/dl 03/21/24 03:53
LAB Results
03/20/24 03/21/24 03/21/24
22:02 00:35 03:53
Troponin I 0.040 H* 0.045 H* 0.334 H* D
03/21/24
07:54
Troponin I 0.660 H* D
Physical Exam
Constitutional: No acute distress
EENT: Anicteric
Cardiovascular: Rhythm & rate is regular, Pedal edema is absent and JVD pressure is normal
Respiratory: Respiratory effort normal and Lungs clear to auscul.
GI: Soft, Distention absent and Non tender
Neuro/Psych: AO x 3
Data Reviewed
-
Date of Service: March 23, 2024
[2024-03-23 11:09] VITALS: BP 128/44
[2024-03-23] MEDS: MUCINEX 600 MG PO ×2 (11:35→23:00)
[2024-03-23] MEDS: TESSALON PERLES 100 MG PO ×2 (11:45→19:27)
[2024-03-23] MEDS: FERRLECIT 110 MG IV (14:15)
[2024-03-23 15:19] VITALS: BP 144/67
[2024-03-23] MEDS: LOVENOX 40 MG SC (16:53)
--- NOTE | 2024-03-23 17:41 | PTCARENOTE ---
pt continues to be in complete hr block/ sb. vss. pt offers no complaints at this time. pt ambulated and tolerated well. pt educated on plan of care and pt verbalized understanding. call casas within reach.
[2024-03-23 19:27] VITALS: BP 157/62
[2024-03-23] MEDS: TYLENOL 650 MG PO (19:28)
[2024-03-23 22:04] VITALS: BP 132/60
[2024-03-23] MEDS: PEPCID 20 MG PO (22:04)
--- NOTE | 2024-03-23 23:15 | PTCARENOTE ---
Pt received start of shift, HR 3rd degree HB. On initial assessment, pt appears anxious w/ c/o pressure in chest 07/21. Frequent cough also noted. PRN tylenol and tessalon pearls administered - see JUL. Per pt request, 2L NC also applied for
comfort. Pt denies any SOB at rest or lightheadedness/dizziness. Pt states she does experience some HUSAIN and dyspnea while eating.
[2024-03-24] VITALS (11 sets, daily range): BP systolic 102–148; BP diastolic 49–102; BMI 24.5
[2024-03-24] MEDS: TESSALON PERLES 100 MG PO ×3 (05:25→20:23)
[2024-03-24 05:41] LABS: % Basophils 0.7 % (0-2); % Eosinophils 3.1 % (0-6); % Immature Granulocytes 0.4 % (0-0.5); % Lymphocytes 19.6 % (20.5-51.1); % Monocytes 11.3 % (1.7-9.3); % Neutrophils 64.9 % (42.2-75.2); Absolute Basophils 0.1 10^3/uL (0-0.2); Absolute Eosinophils 0.4 10^3/uL (0-0.7); Absolute Immature Granulocytes 0.1 10^3/uL (0-0.05); Absolute Lymphocytes 2.3 10^3/uL (1.2-3.4); Absolute Monocytes 1.3 10^3/uL (0.1-0.6); Absolute Neutrophils 7.6 10^3/uL (1.4-6.5); Hematocrit 29.2 % (37.0-47.0); Hemoglobin 9.8 g/dL (12.0-16.0); Mean Corp Hgb Conc. 33.6 g/dL (33.0-37.0); Mean Corpuscular Hgb 28.3 pg (27.0-31.0); Mean Corpuscular Volume 84.4 fL (81.0-99.0); Mean Platelet Volume 12.2 fL (7.4-10.4); Nucleated Red Blood Cells % 0 %; Platelet Count 226 10^3/uL (130-400); Red Blood Cell Count 3.46 10^6/uL (4.20-5.40); Red Cell Dist. Width 14.6 % (11.5-14.5); White Blood Cell Count 11.7 10^3/uL (4.8-10.8)
--- NOTE | 2024-03-24 05:46 | PTCARENOTE ---
OR prep completed w/ 2% CHG. New gown and linens.
[2024-03-24 06:11] LABS: ALT (SGPT) 26 U/L (0-35); AST (SGOT) 16 U/L (14-36); Albumin 2.9 g/dl (3.5-5.0); Alkaline Phosphatase 49 U/L (38-126); Blood Urea Nitrogen 15 mg/dl (7-17); Calcium 9.2 mg/dl (8.4-10.2); Carbon Dioxide 27 mmol/L (22-30); Chloride 103 mmol/L (98-107); Estimated Creatinine Clearance 41 ml/min; Glucose 107 mg/dl (70-99); Potassium 3.7 mmol/L (3.5-5.1); Sodium 138 mmol/L (135-145); Total Bilirubin 0.7 mg/dl (0.2-1.3); Total Protein 4.9 g/dl (6.3-8.2); eGFR > 60.00
[2024-03-24] MEDS: LOW STRENGTH ASPIRIN 81 MG PO (09:04)
[2024-03-24] MEDS: LASIX 20 MG PO (09:04)
[2024-03-24] MEDS: ALDACTONE 25 MG PO (09:04)
[2024-03-24] MEDS: COZAAR 25 MG PO (09:04)
[2024-03-24] MEDS: PROTONIX 40 MG PO (09:04)
[2024-03-24] MEDS: WELLBUTRIN SR (12 hour sustained release) 100 MG PO (09:05)
[2024-03-24] MEDS: FLUSH (NSS) 1 FLUSH IV ×2 (09:05→17:38)
[2024-03-24 09:08] LABS: COVID-19 Antigen Negative (Negative)
--- NOTE | 2024-03-24 10:32 | PTCARENOTE ---
Received patient this morning resting in bed. NPO x meds. Seen by hospitalist, haris and flu swabs sent to the lab as ordered. Remains in CHB, patient for PPM with Dr. Hairston. Abigail in the room now, Dr. Hairston in to sign consent.
--- NOTE | 2024-03-24 11:45 | W.ICD.CONTRA ---
Post ICD/SUPERVISOR METAL PLACING-D
-
History of [place]?: No
LV Function
Left ventricular function study result?: Ejection Fraction </= 35%
ACEI/ARB/ARNI
Patient already on ACEI/ARB/ARNI: Yes
Beta-Michael
Patient already on Beta Michael: No
Beta Michael Contraindication: 2nd-3rd AV Block, No Pacer
--- NOTE | 2024-03-24 12:49 | W.PN.HOSP.TC ---
Today's Communication/Plan
-
for PPM
posible d/c in AM
Assessment / Plan
Assessment / Plan
83yo F with PMHx of LALY, anxiety, HFrEF, GERD came with worsening weakness, chest dyscomfort and low HR, found complete AVB, had cardiac cath on 03/21/24 with most likely Takotsubo, posible acute CHF, pending further decision by cardiology for the
type of device implantation needed (if any indicatied) based on tele and repeated Echo on 03/24/24
A/P:
#Takotsubo cardiomyopathy
#Acute HFrEF
#Complete AVB
#Non-ischemic myocardial injury
Echo on 03/21/24 - EF 40%, hypokinesis of the mid to anterior apical, anteroseptal segments and apex, mild-mod MR, elevated pulmonary pressure to 45mmHg
Telemetry
Cardio follows: for PPM on 03/24/24
cont ASA, ARB, MRA, hold off BB in view of AVB
check Lyme serology,
TSH, Cortisol AM WNL
#LALY
#Anxiety d/o
#GERD
cont home meds
DVT ppx Lovenox
Full code
I have spent at least 38min reviewing chart, test results, communication with consultants and direct patient care
Anticipated Discharge: Within 24 hours
Subjective/Interval History
-
Date of Service: March 24, 2024
Objective Data
-
Labs:
Laboratory Results
03/24/24
05:20
WBC 11.7 H
Hgb 9.8 L
Hct 29.2 L
Plt Count 226
Sodium 138
Potassium 3.7
Chloride 103
Carbon Dioxide 27
BUN 15
Creatinine 0.7
Glucose 107 H
Calcium 9.2
Total Bilirubin 0.7
AST 16
ALT 26
Alkaline Phosphatase 49
Vital Signs:
Vital Signs
Temp Pulse Resp BP Pulse Ox
99.8 F 43 18 135/49 96
03/24/24 08:36 03/24/24 09:00 03/24/24 08:36 03/24/24 08:43 03/24/24 08:36
I&O
03/23/24 03/24/24 03/25/24
06:59 06:59 06:59
Intake Total 650 / 650 960 / 960
Output Total 400 / 400 350 / 350
Balance 250 / 250 610 / 610
Review of Systems
-
History Source: Patient
All other systems: Reviewed and negative
Physical Exam
-
General: No Apparent Distress
HEENT: Normocephalic
Respiratory: Clear to Auscultation
GI: Soft, Nontender and Nondistended
Musculoskeletal: No Clubbing, No Cyanosis and No Edema
Neuro: Awake, Alert, Oriented and AO x 3
Psych: Calm
--- NOTE | 2024-03-24 13:21 | PTCARENOTE ---
Received patient from metallurgical lab technician after PPM left upper chest. Aquacel dressing is dry and intact with immobilizer in place. Post op EKG done, reviewed post op activity restrictions. Dr. Hairston in to speak with the patient's daughter, daughter at the
bedside now, call casas in reach, monitoring VS.
--- NOTE | 2024-03-24 13:56 | CM ---
Reviewed chart. Met with Mrs. Toussaint and her three daughters to review discharge plans. She states she is feeling better and maybe able to go home soon. She states prior to admission she resdies alone in a two story home with three steps. She
states she has a stair glide to get to the second floor. She states she has a powder room on the first floor. She states prior to admission she was independent with ambulation and adls. She only has a stair glide and no other DME in the home. She
states she has a prescription plan with [facility]. Telephone call to [employer] to check on co-pay for Farxiga, Jardiance and Entresto. Her first script for Farxiga would be $332.50 and then she would be responsible for 25 % of the cost of
the medication which would be $81.42 a month. Jardiance first month co-pay would be 360.50 and then $83.12 a month after. Entresto woulf be $350.60 the first month and then $83.65 after. We reviewed [facility] at home. She is agreeable to
[facility]. Telephone call to [facility] to inform them of tentative discharge date. Medical work-up in progress. The discharge plan is to return home with [facility] when medically stable.
[2024-03-24] MEDS: FERRLECIT 110 MG IV (14:21)
--- NOTE | 2024-03-24 14:31 | PTCARENOTE ---
patient called out c/o dry cough, Tessalon pearls po given as ordered.
[2024-03-24] MEDS: MUCINEX 600 MG PO (14:48)
--- NOTE | 2024-03-24 14:53 | ITS.CL.PACE ---
Administrative Accountant - Pacemaker Implant
Pacemaker Implant
Procedure Report:
Date of Procedure: March 24, 2024.
Procedure: Pacemaker Implantation.
Indication: The pacemaker is for the treatment of nonreversible symptomatic bradycardia due to third degree atrioventricular block.
Performing physician: Tuan Hairston MD., [facility].
Implants:
Pulse Generator: Medtronic; Model# [id number]; Serial# [id number].
RA Lead: Medtronic; Model# 5076-45cm; Serial# [id number].
RV Lead: Medtronic; Model# 3830-69cm; Serial# [id number].
Technique: A time out was performed. The procedure site was identified. The patient was anesthetized by the anesthesia service. Preoperative cefazolin was administered. The patient was prepped and draped in the usual fashion. Local anesthetic was
applied to the left prepectoral subcutaneous tissue. A 3 inch incision was made along the left deltopectoral groove. Dissection was carried to the fascia. The left cephalic vein was easily isolated and proximal and distal control with 2-0 Vicryl
suture. Using a micropuncture needle to access the cephalic vein under direct visualization a wire was advanced into the central circulation. A 7 Fr introducer was placed to allow two 0.35 J wires to be advanced. The leads were introduced with
hemostatic peel away introducer sheaths. The RV lead was placed using utilizing the [employer] His delivery catheter ([id number]) that was advanced to the left bundle area as confirmed by fluoroscopy in the AG and RAMIREZ projections. The lead tip was
advanced. PVC morphology was reviewed. When a satisfactory location was identified (W pattern observed) the lead was screwed into position with serial turns. Septal engagement was confirmed with gentle torque applied to the guide sheath. After each
series of turns (2-3) unipolar sensed morphology and impedance, and paced morphology of V1 was analyzed. The lead was further advanced until satisfactory morphology and electrical characteristics were confirmed. The RV lead was placed in the second
location evaluated. The long guiding sheath was cut and removed from the RV without change in lead position, impedance, sensing, or capture. The ventricular lead was secured to the pectoralis muscle and fascia with two 0-silk sutures. The atrial
lead was placed in the right atrial appendage. 8 volt pacing from each lead did not capture the diaphragm. The atrial leads was secured to the pectoralis muscle and fascia. A subcutaneous pocket was created with Bovie cautery. Hemostasis was
excellent. The leads were appropriately attached to the device. The pocket was irrigated with antibiotic solution. The device and leads were placed in the pocket. The incision was closed in three layers with absorbable suture. Steri-strips and a
silver impregnated dressing were placed. Estimated blood loss was about 5 ml. There were no complications. Fluoroscopy time2.1 minutes and DAP 1.38 mGyCM2. The device was then interrogated after skin closure.
Lead Analysis:
RA lead: P: 1.8 mV; Threshold: 1.25 V @ 0.4 ms; Impedance: 470 ohms.
RV lead: R: 17 mV; Threshold: 1 V @ 0.4 ms; Impedance: 660 ohms.
Paced QRS characteristics in both unipolar and bipolar modes: V1 has qr morphology and measures 96 ms in duration, LVAT (stim to peak V5/V6) is 70 ms, and R peak V1 to R peak V6 is 33 ms.
Final Programming: DDDR 60-130 bpm.
Conclusion: Uncomplicated Medtronic pacemaker implant. Successful selective left bundle branch capture. The pacing system is MRI conditional.
Recommendation: Routine post pacemaker care.
cc: Stephen Goode PA-C.
[2024-03-24 16:21] LABS: Lyme Antibody Screen, EIA Negative (Negative)
[2024-03-24] MEDS: LOVENOX 40 MG SC (17:38)
[2024-03-24] MEDS: ANCEF 5 IV (17:38)
[2024-03-24] MEDS: PEPCID 20 MG PO (20:23)
[2024-03-24] MEDS: TYLENOL 650 MG PO (20:24)
--- NOTE | 2024-03-24 23:07 | PTCARENOTE ---
Pt. mostly mostly V paced on the monitor, AV at times, rate 70-90's. Left CW pacer dressing CDI without drainage or hematoma, left radial pulse palpable. Medicated with Tylenol for incisional discomfort with adequate relief obtained. Pt.
sleeping.
[2024-03-25] MEDS: ANCEF 5 IV (00:06)
[2024-03-25] MEDS: MUCINEX 600 MG PO (00:06)
[2024-03-25] MEDS: TYLENOL 650 MG PO ×2 (00:12→08:15)
[2024-03-25 03:49] VITALS: BP 141/80
[2024-03-25] MEDS: MAALOX 30 ML PO (04:05)
[2024-03-25 04:27] LABS: Hematocrit 28.7 % (37.0-47.0); Hemoglobin 9.4 g/dL (12.0-16.0); Mean Corp Hgb Conc. 32.8 g/dL (33.0-37.0); Mean Corpuscular Hgb 28.5 pg (27.0-31.0); Mean Platelet Volume 12.3 fL (7.4-10.4); Platelet Count 215 10^3/uL (130-400); Red Cell Dist. Width 14.8 % (11.5-14.5); White Blood Cell Count 9.3 10^3/uL (4.8-10.8)
[2024-03-25 04:53] LABS: Blood Urea Nitrogen 11 mg/dl (7-17); Carbon Dioxide 28 mmol/L (22-30); Chloride 100 mmol/L (98-107); Estimated Creatinine Clearance 41 ml/min; Glucose 89 mg/dl (70-99); Sodium 139 mmol/L (135-145); eGFR > 60.00
[2024-03-25 06:00] VITALS: BMI 24.5
[2024-03-25 07:59] VITALS: BP 144/76
[2024-03-25] MEDS: LOW STRENGTH ASPIRIN 81 MG PO (08:16)
[2024-03-25] MEDS: LASIX 20 MG PO (08:16)
[2024-03-25] MEDS: ALDACTONE 25 MG PO (08:16)
[2024-03-25] MEDS: PROTONIX 40 MG PO (08:16)
[2024-03-25] MEDS: COZAAR 25 MG PO (08:16)
[2024-03-25] MEDS: WELLBUTRIN SR (12 hour sustained release) 100 MG PO (08:16)
--- NOTE | 2024-03-25 08:37 | PN.CDI ---
CDI
- -
CDI:
Physician Documentation Request
Admit Date: 03/20/24 23:29
Dear Doctor Norah,
Please review the following and provide your response in the progress notes.
Clinical Indicators:
- 03/20 H&P indicates 'no known significant past medical history'
- Admit with complete heart block
- 03/21 1L IVF given
- 03/22 PN 'Acute heart failure with reduced ejection fraction'
- 03/23 Cardiology 'Takotsubo cardiomyopathy'
Laboratory Tests
03/20/24 03/22/24 03/25/24
22:02 04:51 04:00
Creatinine 1.1 H 0.8 0.7
eGFR 49.55 > 60.00 > 60.00
Please clarify which of the following accurately represents the patient's renal status:
MURPHY, resolved
CKD 2
Other
Criteria for MURPHY*
1 Increase in serum creatinine by > or = to 0.3 mg/dL (> or = to 26.5 micromol/L) within 48 hours, OR
2 Increase in serum creatinine to > or = to 1.5 times baseline, which is known or presumed to have occurred within 7 days, OR
3 Urine volume < 0.5 nL/kg/hour for six hours
Stages of Chronic Kidney Disease*
Level Description GFR
G1 Normal or High >90
G2 Mildly decreased 60-89
G3a Mildly to moderately decreased 45-59
G3b Moderately to severely decreased 30-44
G4 Severely decreased 15-29
G5 Kidney failure <15
Use of terms such as suspected, likely, concern for, or probable (associated with a specific diagnosis that is being evaluated, monitored, or treated as if it exists) are acceptable and can be coded in the inpatient setting, when documented at the
time of discharge.
Thank you,
Belia Diaz RN
CDI Specialist
Please use your independent medical judgment in providing your response.
*Source: Kidney Disease: Improving Global Outcomes (KDIGO) 2012
--- NOTE | 2024-03-25 08:53 | PTCARENOTE ---
Assumed care. Patient out of bed, walked to the bathroom. Tylenol given for left shoulder pain. Aquacel dressing CDI with left arm immobilizer. Siting in chair, daughter at bedside, call casas in reach
--- NOTE | 2024-03-25 10:07 | W.PN.HOSP.TC ---
Today's Communication/Plan
-
pending final cardio reccomendations and possible d/c
Assessment / Plan
Assessment / Plan
83yo F with PMHx of LALY, anxiety, HFrEF, GERD came with worsening weakness, chest discomfort and low HR, found complete AVB, had cardiac cath on 03/21/24 with most likely Takotsubo, posable acute CHF, has PPM placed on 03/24/24 and monitored over the
next 24H showing appropriate pacing. Was able to ambulate at her room and planning to be d/c home, family agreeable. Pending final cardio eval and d/c
A/P:
#Takotsubo cardiomyopathy
#Acute HFrEF
#Complete AVB
#Non-ischemic myocardial injury
Echo on 03/21/24 - EF 40%, hypokinesis of the mid to anterior apical, anteroseptal segments and apex, mild-mod MR, elevated pulmonary pressure to 45mmHg
Telemetry
Cardio follows: PPM placed on 03/24/24
cont ASA, ARB, MRA, hold off BB in view of AVB
check Lyme serology,
TSH, Cortisol AM WNL
#LALY
#Anxiety d/o
#GERD
cont home meds
DVT ppx Lovenox
Full code
I have spent at least 38min reviewing chart, test results, communication with consultants and direct patient care
Anticipated Discharge: Within 24 hours
Subjective/Interval History
-
Date of Service: March 25, 2024
Objective Data
-
Labs:
Laboratory Results
03/25/24
04:00
WBC 9.3
Hgb 9.4 L
Hct 28.7 L
Plt Count 215
Sodium 139
Potassium 4.0
Chloride 100
Carbon Dioxide 28
BUN 11
Creatinine 0.7
Glucose 89
Calcium 9.0
Vital Signs:
Vital Signs
Temp Pulse Resp BP Pulse Ox
98.6 F 78 18 144/76 98
03/25/24 08:27 03/25/24 08:00 03/25/24 08:27 03/25/24 07:59 03/25/24 08:27
I&O
03/24/24 03/25/24 03/26/24
06:59 06:59 06:59
Intake Total 960 / 960 240 / 240
Output Total 350 / 350
Balance 610 / 610 240 / 240
Review of Systems
-
History Source: Patient
All other systems: Reviewed and negative
Physical Exam
-
General: No Apparent Distress
HEENT: Normocephalic
Cardiac: Regular Rhythm
GI: Soft
Neuro: Awake, Alert, Oriented and AO x 3
Psych: Calm
[2024-03-25 11:06] VITALS: BP 141/74
--- NOTE | 2024-03-25 11:16 | W.PN.UPDATE ---
Update Note
Progress Note Update
Pt seen and examined. CXR, EKG, tele, pacer site all perfect.
Home on current meds for cardiomyopathy: Lasix, Aldactone, ARB at current doses. If congestion persists or EF not normal in followup will advance meds and add SGLT2-I.
Defer anemia evaluation to hospitalist/PCP.
F/u arranged with us.
OK for home from our perspective.
--- NOTE | 2024-03-25 13:20 | W.DCSUMMARY ---
Discharge Summary
Discharge Data
Date of Admission: 03/20/24
Date of Discharge: 03/25/24
-
Pending Results: No
Hospital Course
83yo F with PMHx of LALY, anxiety, HFrEF, GERD came with worsening weakness, chest discomfort and low HR, found complete AVB, had cardiac cath on 03/21/24 with most likely Takotsubo, posable acute CHF, has PPM placed on 03/24/24 and monitored over the
next 24H showing appropriate pacing. Was able to ambulate at her room and planning to be d/c home, family agreeable. Lyme screen neg. Medically stable for d/c home as per agreement with cardiology
I have spent at least 38min discharging the patient
Patient was managed for:
#Takotsubo cardiomyopathy
#Acute HFrEF
#Complete AVB
#Non-ischemic myocardial injury
#LALY
#Anxiety d/o
#GERD
#MURPHY on admission
Discharge Plan
-
Patient Disposition: Home (Routine Discharge)
Discharge Diagnosis/Procedures: Pacemaker implant
Diet: Low Sodium
Activity: As tolerated
Driving Restrictions: As prior to admission
Instructions: *PCP/Other Consulting Services Project Manager Heart Failure Instructions
Stand Alone Forms: DC Inst - Implanted Device
Referrals:
[facility] [Outside]
Izzy Tabares NP [Specified Professional Personl] - 04/02/24 11:00 am (Post device incision check appointment)
Stephen Goode PA-C [Family Provider] - in less than 1 week (anemia workup)
Prescriptions:
New
spironolactone 25 mg Tablet
25 mg PO DAILY Qty: 30 0RF
losartan 25 mg Tablet
25 mg PO DAILY Qty: 30 0RF
aspirin 81 mg Tablet,Chewable
81 mg PO DAILY Qty: 30 0RF
furosemide 20 mg Tablet
20 mg PO DAILY Qty: 30 0RF
Continued
famotidine 40 mg Tablet
40 mg PO HS
omeprazole 20 mg Capsule,Delayed Release(Dr/Ec)
20 mg PO DAILY
benzonatate 100 mg Capsule
100 mg PO TIDPRN PRN (Reason: cough)
guaifenesin [Mucinex] 600 mg Tablet Extended Release 12hr
600 mg PO Q12H
bupropion HCl 100 mg tablet sustained-release 12 hr
100 mg PO DAILY
Patient Comments:
03/20/2024: prescribed BID, but forgets to take 2nd dose
albuterol sulfate 90 mcg/actuation HFA aerosol inhaler
1 puff INHALATION R Q4HPRN PRN (Reason: sob/wheezing)
PreserVision AREDS-2 250-90-40-1 mg Capsule
1 tab PO BID
Discontinued
methylprednisolone 4 mg tablets,dose pack
4 mg PO PER PKG DIR
Patient Comments:
03/20/2024: on day 4; started on sunday
Discharge Orders:
Discharge Patient (As Directed); Ordered 03/25/24
Ordered By: Paul Almazan
Care Plan Goals
Care Plan Goals:
Problem: Readiness for enhanced knowledge related to diagnosis and treatment plan
Goal: Understand your diagnosis and treatment plan needs, including medications if applicable.
Instructions: Know your diagnosis, underlying causes and treatment plan options, including medications if applicable. Consult with your health care team to learn about your diagnosis and treatment plan, including medications if applicable.
Discharge Date and Time
Print Language: BRAZILIAN
--- NOTE | 2024-03-25 14:10 | PTCARENOTE ---
Patient discharged to home. Teaching provided, patient verbalized understanding. IV and Telemetry removed. Patient escorted to son's car via wheelchair.
--- NOTE | 2024-03-26 11:10 | W.HF.CON ---
Heart Failure
- LV Function
Left ventricular function study result: LV Ejection fraction >/= 50%
Ejection Fraction Percentage: 50-55
- ARNI
Patient already on ARNI: No
Heart Failure ARNI Not Indicated: LV Ejection Fraction >/= 40%
- ACEI/ARB
Patient already on ACEI/ARB: Yes
- Beta Michael
Patient already on Evidence Based Beta Michael: No
Heart Failure Evidence Based Beta Michael Not Indicated: LV Ejection Fraction > 40%
- Mineralocorticord Receptor Antagonist
Patient already on MRA: Yes
- SGLT-2 Inhibitor
Patient already on SGLT-2 Inhibitor: No
Heart Failure SGLT-2 Inhibitor Not Indicated: LV Ejection Fraction >40%
- NYHA CHF Classification
NYHA CHF Classification Level: Class III - Symptoms w/ min exertion, interferes w/ nml daily activity
- ACC/AHA Stage
ACC/AHA Stage: Stage C: Symptomatic Heart Failure
== END 2024-03-25 14:17 | disposition home health service (06) | DRG 242 ==
LOC: IVU 23:29
PROVIDERS: Emergency Medicine; Hospitalist; Internal Medicine Cardiovascular Disease; Nurse Practitioner; Registered Nurse; ADMITTING PHYSICIAN Internal Medicine; ATTENDING PHYSICIAN Internal Medicine; EMERGENCY PHYSICIAN Student in an Organized Health Care Education/Training Program; FAMILY PHYSICIAN Physician Assistant Medical; OTHER PHYSICIAN Internal Medicine Cardiovascular Disease
PROC: B2151ZZ Fluoroscopy of Left Heart using Low Osmolar Contrast (ICD-10-PCS; 2024-03-21)
PROC: B2111ZZ Fluoroscopy of Multiple Coronary Arteries using Low Osmolar Contrast (ICD-10-PCS; 2024-03-21)
PROC: 4A023N7 Measurement of Cardiac Sampling and Pressure, Left Heart, Percutaneous Approach (ICD-10-PCS; 2024-03-21)
PROC: 02HK3JZ Insertion of Pacemaker Lead into Right Ventricle, Percutaneous Approach (ICD-10-PCS; 2024-03-24)
PROC: 0JH606Z Insertion of Pacemaker, Dual Chamber into Chest Subcutaneous Tissue and Fascia, Open Approach (ICD-10-PCS; 2024-03-24)
PROC: 02H63JZ Insertion of Pacemaker Lead into Right Atrium, Percutaneous Approach (ICD-10-PCS; 2024-03-24)
DX: I51.81 Takotsubo syndrome (principal); I50.23 Acute on chronic systolic (congestive) heart failure; I44.2 Atrioventricular block, complete; I5A Non-ischemic myocardial injury (non-traumatic); N17.9 Acute kidney failure, unspecified; K21.9 Gastro-esophageal reflux disease without esophagitis; D64.9 Anemia, unspecified; Z87.891 Personal history of nicotine dependence; F41.9 Anxiety disorder, unspecified; Z11.52 Encounter for screening for COVID-19
CPT/HCPCS: 93308; 33208; 71045; 71046; 80048; 80053; 80061; 82533; 82607; 83540; 83550; 84443; 84484; 85025; 85027; 85045; 85610; 86618; 87502; 87811; 93005; 93306; 93321; 93325; 93458; 99291; C1760; C1785; C1887; C1894; C1898; J2916; Q9950; Q9967

== ENCOUNTER → 2024-04-07 09:56 | Outpatient (REF) | payer MEDICARE, OTHER, SELFPAY ==
[2024-04-07 11:04] LABS: Blood Urea Nitrogen 20 mg/dl (7-17); Calcium 9.8 mg/dl (8.4-10.2); Carbon Dioxide 29 mmol/L (22-30); Chloride 102 mmol/L (98-107); Glucose 95 mg/dl (70-99); Sodium 140 mmol/L (135-145); eGFR > 60.00
== END ==
LOC: REG 09:56
PROVIDERS: ATTENDING PHYSICIAN Nurse Practitioner; FAMILY PHYSICIAN Physician Assistant Medical
DX: E78.2 Mixed hyperlipidemia (principal); I50.20 Unspecified systolic (congestive) heart failure
CPT/HCPCS: 36415; 80048

== ENCOUNTER → 2024-04-24 16:15 | Outpatient (REF) | payer MEDICARE, OTHER, SELFPAY ==
[2024-04-24 17:02] LABS: % Basophils 0.7 % (0-2); % Eosinophils 2.9 % (0-6); % Immature Granulocytes 0.2 % (0-0.5); % Lymphocytes 30.6 % (20.5-51.1); % Monocytes 9.4 % (1.7-9.3); % Neutrophils 56.2 % (42.2-75.2); Absolute Basophils 0.1 10^3/uL (0-0.2); Absolute Eosinophils 0.2 10^3/uL (0-0.7); Absolute Lymphocytes 2.5 10^3/uL (1.2-3.4); Absolute Monocytes 0.8 10^3/uL (0.1-0.6); Absolute Neutrophils 4.6 10^3/uL (1.4-6.5); Hematocrit 36.2 % (37.0-47.0); Hemoglobin 11.8 g/dL (12.0-16.0); Mean Corp Hgb Conc. 32.6 g/dL (33.0-37.0); Mean Corpuscular Volume 88.9 fL (81.0-99.0); Mean Platelet Volume 11.3 fL (7.4-10.4); Nucleated Red Blood Cells % 0 %; Platelet Count 248 10^3/uL (130-400); Red Blood Cell Count 4.07 10^6/uL (4.20-5.40); Red Cell Dist. Width 14.6 % (11.5-14.5); White Blood Cell Count 8.2 10^3/uL (4.8-10.8)
[2024-04-24 17:39] LABS: ALT (SGPT) 18 U/L (0-35); AST (SGOT) 20 U/L (14-36); Albumin 4.4 g/dl (3.5-5.0); Alkaline Phosphatase 55 U/L (38-126); Blood Urea Nitrogen 16 mg/dl (7-17); Calcium 9.8 mg/dl (8.4-10.2); Carbon Dioxide 29 mmol/L (22-30); Chloride 101 mmol/L (98-107); Glucose 90 mg/dl (70-99); Potassium 4.5 mmol/L (3.5-5.1); Sodium 138 mmol/L (135-145); Total Bilirubin 0.4 mg/dl (0.2-1.3); Total Protein 6.7 g/dl (6.3-8.2); eGFR > 60.00
== END ==
LOC: REG 16:15
PROVIDERS: ATTENDING PHYSICIAN Physician Assistant Medical
DX: F41.9 Anxiety disorder, unspecified (principal); I51.81 Takotsubo syndrome; Z95.0 Presence of cardiac pacemaker
CPT/HCPCS: 36415; 80053; 85025

== ENCOUNTER → 2024-07-23 10:30 | Outpatient (REF) | payer MEDICARE, OTHER, SELFPAY ==
[2024-07-23 11:37] LABS: % Basophils 0.7 % (0-2); % Eosinophils 3.2 % (0-6); % Immature Granulocytes 0.3 % (0-0.5); % Lymphocytes 28.5 % (20.5-51.1); % Monocytes 8.7 % (1.7-9.3); % Neutrophils 58.6 % (42.2-75.2); Absolute Basophils 0.1 10^3/uL (0-0.2); Absolute Eosinophils 0.2 10^3/uL (0-0.7); Absolute Lymphocytes 2.2 10^3/uL (1.2-3.4); Absolute Monocytes 0.7 10^3/uL (0.1-0.6); Absolute Neutrophils 4.5 10^3/uL (1.4-6.5); Hematocrit 37.2 % (37.0-47.0); Hemoglobin 11.9 g/dL (12.0-16.0); Mean Corpuscular Volume 90.7 fL (81.0-99.0); Mean Platelet Volume 11.7 fL (7.4-10.4); Nucleated Red Blood Cells % 0 %; Platelet Count 278 10^3/uL (130-400); Red Cell Dist. Width 13.9 % (11.5-14.5); White Blood Cell Count 7.6 10^3/uL (4.8-10.8)
[2024-07-23 11:57] LABS: ALT (SGPT) 20 U/L (0-35); AST (SGOT) 18 U/L (14-36); Albumin 3.9 g/dl (3.5-5.0); Alkaline Phosphatase 53 U/L (38-126); Blood Urea Nitrogen 22 mg/dl (7-17); Calcium 10.1 mg/dl (8.4-10.2); Carbon Dioxide 29 mmol/L (22-30); Chloride 104 mmol/L (98-107); Glucose 101 mg/dl (70-99); HDL Cholesterol 56 mg/dl; LDL Cholesterol, Calculated 70 mg/dl; Sodium 138 mmol/L (135-145); Total Bilirubin 0.6 mg/dl (0.2-1.3); Total Cholesterol 146 mg/dl (50-199); Total Protein 6.1 g/dl (6.3-8.2); Triglyceride 104 mg/dl (10-149); Very Low Density Lipoprotein 20 mg/dl (0-30); eGFR > 60.00
[2024-07-23 12:30] LABS: TSH 1.48 uIU/ml (0.47-4.68)
== END ==
LOC: REG 10:30
PROVIDERS: ATTENDING PHYSICIAN Physician Assistant Medical
DX: R68.89 Other general symptoms and signs (principal); D64.9 Anemia, unspecified; E04.1 Nontoxic single thyroid nodule; E78.2 Mixed hyperlipidemia
CPT/HCPCS: 36415; 80053; 80061; 84443; 85025

== ENCOUNTER → 2024-08-28 11:07 | Outpatient (REF) | payer MEDICARE, OTHER, SELFPAY | LOC: RCS 11:07 | PROVIDERS: ATTENDING PHYSICIAN Internal Medicine Cardiovascular Disease; FAMILY PHYSICIAN Physician Assistant Medical | DX: I44.2 Atrioventricular block, complete (principal); I42.8 Other cardiomyopathies | CPT/HCPCS: 93306 ==

== ENCOUNTER → 2024-09-24 12:43 | Outpatient (REF) | payer MEDICARE, OTHER, SELFPAY | LOC: RAD 12:43 | PROVIDERS: ATTENDING PHYSICIAN Physician Assistant Medical | DX: M81.0 Age-related osteoporosis without current pathological fracture (principal) | CPT/HCPCS: 77080 ==

== ENCOUNTER → 2024-10-13 10:25 | Outpatient (REF) | payer MEDICARE, OTHER, SELFPAY ==
[2024-10-13 12:08] LABS: % Basophils 1.4 % (0-2); % Eosinophils 4.1 % (0-6); % Immature Granulocytes 0.3 % (0-0.5); % Lymphocytes 30.7 % (20.5-51.1); % Monocytes 9.4 % (1.7-9.3); % Neutrophils 54.1 % (42.2-75.2); Absolute Basophils 0.1 10^3/uL (0-0.2); Absolute Eosinophils 0.3 10^3/uL (0-0.7); Absolute Lymphocytes 2.3 10^3/uL (1.2-3.4); Absolute Monocytes 0.7 10^3/uL (0.1-0.6); Hematocrit 38.2 % (37.0-47.0); Hemoglobin 12.4 g/dL (12.0-16.0); Mean Corp Hgb Conc. 32.5 g/dL (33.0-37.0); Mean Corpuscular Hgb 30.2 pg (27.0-31.0); Mean Corpuscular Volume 92.9 fL (81.0-99.0); Mean Platelet Volume 11.7 fL (7.4-10.4); Nucleated Red Blood Cells % 0 %; Platelet Count 308 10^3/uL (130-400); Red Blood Cell Count 4.11 10^6/uL (4.20-5.40); Red Cell Dist. Width 13.1 % (11.5-14.5); White Blood Cell Count 7.4 10^3/uL (4.8-10.8)
[2024-10-13 12:54] LABS: ALT (SGPT) 19 U/L (0-35); AST (SGOT) 20 U/L (14-36); Albumin 4.6 g/dl (3.5-5.0); Alkaline Phosphatase 46 U/L (38-126); Blood Urea Nitrogen 13 mg/dl (7-17); Calcium 9.6 mg/dl (8.4-10.2); Carbon Dioxide 29 mmol/L (22-30); Chloride 108 mmol/L (98-107); Glucose 85 mg/dl (70-99); Iron 108 ug/dl (37-170); Potassium 4.7 mmol/L (3.5-5.1); Sodium 142 mmol/L (135-145); Total Bilirubin 0.7 mg/dl (0.2-1.3); Total Protein 6.9 g/dl (6.3-8.2); eGFR > 60.00
[2024-10-13 12:56] LABS: Glycohemoglobin (HgbA1c) 5.5 % (4.0-5.6)
[2024-10-13 13:05] LABS: Percent Saturation 36 % (20-50); Total Iron Binding Capacity 299 ug/dl (265-497)
== END ==
LOC: REG 10:25
PROVIDERS: ATTENDING PHYSICIAN Physician Assistant Medical
DX: K21.9 Gastro-esophageal reflux disease without esophagitis (principal); D12.6 Benign neoplasm of colon, unspecified; E78.2 Mixed hyperlipidemia; D64.9 Anemia, unspecified; R73.03 Prediabetes; I44.2 Atrioventricular block, complete
CPT/HCPCS: 36415; 80053; 83036; 83540; 83550; 85025

== ENCOUNTER → 2024-10-21 16:10 | Outpatient (REF) | payer MEDICARE, OTHER, SELFPAY ==
[2024-10-21 16:57] LABS: Calcium 9.7 mg/dl (8.4-10.2)
[2024-10-21 17:14] LABS: Vitamin D, 25-OH*** 34.3 ng/mL (30-80)
[2024-10-21 18:37] LABS: Intact PTH 69.7 pg/ml (13.6-85.8)
[2024-10-22 14:31] LABS: tTG IgG Antibody 7.6 EU/ml (0-19)
[2024-10-22 23:38] LABS: IgA 111 mg/dl (70-400)
== END ==
LOC: REG 16:10
PROVIDERS: ATTENDING PHYSICIAN Physician Assistant; FAMILY PHYSICIAN Physician Assistant Medical
DX: E55.9 Vitamin D deficiency, unspecified (principal); M81.0 Age-related osteoporosis without current pathological fracture
CPT/HCPCS: 36415; 82306; 82784; 83516; 83970; 86231

== ENCOUNTER → 2025-01-06 10:14 | Outpatient (REF) | payer MEDICARE, OTHER, SELFPAY ==
[2025-01-06 11:17] LABS: Hematocrit 38.0 % (37.0-47.0); Hemoglobin 12.3 g/dL (12.0-16.0); Mean Corp Hgb Conc. 32.4 g/dL (33.0-37.0); Mean Corpuscular Volume 90.0 fL (81.0-99.0); Nucleated Red Blood Cells % 0 %; Platelet Count 297 10^3/uL (130-400); Red Cell Dist. Width 13.1 % (11.5-14.5)
== END ==
LOC: REG 10:14
PROVIDERS: ATTENDING PHYSICIAN Physician Assistant Medical
DX: R79.89 Other specified abnormal findings of blood chemistry (principal)
CPT/HCPCS: 36415; 85025

== ENCOUNTER → 2025-02-11 09:47 | Outpatient (REF) | payer MEDICARE, OTHER, SELFPAY ==
[2025-02-11 11:32] LABS: Blood Urea Nitrogen 13 mg/dl (7-17); Calcium 9.6 mg/dl (8.4-10.2); Carbon Dioxide 31 mmol/L (22-30); Chloride 105 mmol/L (98-107); Glucose 94 mg/dl (70-99); Potassium 5.0 mmol/L (3.5-5.1); Sodium 140 mmol/L (135-145); eGFR > 60.00
== END ==
LOC: REG 09:47
PROVIDERS: ATTENDING PHYSICIAN Internal Medicine Cardiovascular Disease; FAMILY PHYSICIAN Physician Assistant Medical
DX: I44.2 Atrioventricular block, complete (principal); I25.10 Atherosclerotic heart disease of native coronary artery without angina pectoris; I42.8 Other cardiomyopathies
CPT/HCPCS: 36415; 80048; 83880